=== PATIENT | female | born 1975 | race Caucasian/White ===

== ENCOUNTER 2020-01-31 22:50 | Emergency (ER) | payer MEDICAID ==
[~2020-01-31] VITALS: Ht 157.5 cm; Wt 61.2 kg
[2020-01-31] MEDS ORDERED: FLUORESCEIN SODIUM 1 MG OPHTHALMIC STRIP OP ONE (22:51)
[2020-01-31 22:54] VITALS: BP_SYST 141
--- NOTE | 2020-01-31 22:54 | NUR ---
Patient to ER bed 08 to gown for evaluation. Side rails up. Report given to KEITH Nieves
--- NOTE | 2020-01-31 22:55 | NUR ---
Patient AOx4 ambulated to bedside complaining of right eye pain since this AM. Reports now coming in because pain is unbearable. Pain 9/10. Reports possible Foreign object or her contact. No other complaints/injuries per patient or as noted. Will continue to monitor.
[2020-01-31] MEDS ORDERED: TETRACAINE HCL/PF 0.5% OPHTHALMIC DROPS 4 ML OP ONE (23:00)
--- NOTE | 2020-01-31 23:00 | NUR ---
ER at bedside examining patient.
--- NOTE | 2020-01-31 23:02 | NUR ---
Dr. Beth at bedside to do eye exam.
--- NOTE | 2020-01-31 23:14 | NUR ---
Patient given written and verbal discharge instructions and verbalizes understanding. ER MD discussed with patient the results and treatment provided. Patient in stable condition. ID arm band removed. Patient educated on pain management and to follow up with PMD. Opportunity for questions provided and answered. Medication side effect fact sheet provided.
[2020-01-31 23:15] VITALS: BP_SYST 141
[2020-01-31] MEDS ORDERED: ERYTHROMYCIN BASE 0.5% EYE OINT...G. OP ONE (23:15)
[2020-01-31] MEDS ORDERED: ERYTHROMYCIN BASE 0.5% EYE OINT...G. ONE (23:25)
== END 2020-01-31 23:15 | disposition home or self-care (01) ==
LOC: SED 22:50
DX: S05.01XA Injury of conjunctiva and corneal abrasion without foreign body, right eye, initial encounter (principal); X58.XXXA Exposure to other specified factors, initial encounter; Y93.89 Activity, other specified; Y92.89 Other specified places as the place of occurrence of the external cause; Y99.8 Other external cause status
CPT/HCPCS: 99284

== ENCOUNTER 2020-02-01 19:14 | Emergency (ER) | payer MEDICAID ==
[~2020-02-01] VITALS: Ht 167.6 cm; Wt 61.7 kg
[2020-02-01 19:25] VITALS: BP_SYST 159
[2020-02-01 21:25] VITALS: BP_SYST 159
[2020-02-01] MEDS ORDERED: GENTAMICIN SULFATE 0.3% Non-Formulary OPHT. 5 ML DROPS OP ONE (21:30)
== END 2020-02-01 21:25 | disposition home or self-care (01) ==
LOC: SED 19:14
DX: H57.11 Ocular pain, right eye (principal); Z88.6 Allergy status to analgesic agent
CPT/HCPCS: 99283

== ENCOUNTER 2021-05-11 15:19 | Emergency (ER) | payer MEDICAID, SELFPAY ==
[~2021-05-11] VITALS: Ht 157.5 cm; Wt 63.5 kg
--- NOTE | 2021-05-11 15:19 | NUR ---
Pt placed in the tent
--- NOTE | 2021-05-11 15:20 | NUR ---
Pt brought by self, A&Ox4, pt presents to ER with R flank pain, states she had a kidney stent 7 days, afebrile, skin pink and warm,cap refill<3
[2021-05-11 15:37] VITALS: BP_SYST 120
--- NOTE | 2021-05-11 16:20 | NUR ---
Dr. Beth to tent to assess.
[2021-05-11] MEDS ORDERED: NACL 0.9% 1,000 ML IV ONE (16:30)
[2021-05-11] MEDS ORDERED: MORPHINE 4 MG INJ. 4 MG/ML VIAL IVP ONE (16:30)
[2021-05-11] MEDS ORDERED: KETOROLAC TROMETHAMINE 30 MG VIAL IVP ONE (16:30)
--- NOTE | 2021-05-11 16:45 | NUR ---
# 22 gauge angiocath placed to right hand. Use of asceptic technique. Opsite placed over site. Blood return noted. Flushed with 10 cc of normal saline. No evidence of infiltration noted. Patient tolerated well.
--- NOTE | 2021-05-11 16:55 | NUR ---
Lab at bedside for blood draw.
--- NOTE | 2021-05-11 17:00 | NUR ---
Urine specimen sent to lab for analysis.
--- NOTE | 2021-05-11 17:09 | NUR ---
Pt to CT scan with radiology.
[2021-05-11 17:20] LABS: BASOPHILS # (AUTO) 0.1 K/uL (0.0-0.2); BASOPHILS % (AUTO) 1.2 % (0.0-2.0); EOSINOPHILS # (AUTO) 0.2 K/uL (0.0-0.4); EOSINOPHILS % (AUTO) 2.4 % (0.0-4.0); HEMATOCRIT 39.3 % (36-48); HEMOGLOBIN 13.1 g/dL (12.0-16.0); LYMPHOCYTES # (AUTO) 2.9 K/uL (1.0-5.5); MEAN CORPUSCULAR HEMOGLOBIN 27 pg (27-31); MEAN CORPUSCULAR HGB CONC 33 % (32-36); MEAN CORPUSCULAR VOLUME 81 fL (79.0-98.0); MONOCYTES # (AUTO) 0.5 K/uL (0.0-1.0); MONOCYTES % (AUTO) 6.3 % (1.7-9.3); NEUTROPHILS # (AUTO) 4.8 K/uL (1.8-7.7); NEUTROPHILS % (AUTO) 56.1 % (40.0-70.0); PLATELET COUNT (AUTO) 373 K/uL (130-430); RED BLOOD CELL COUNT(AUTO) 4.87 MIL/uL (4.2-6.2); RED CELL DISTRIBUTION WIDTH 14.9 % (9.0-15.0); WHITE BLOOD COUNT (AUTO) 8.5 K/uL (4.8-10.8)
--- NOTE | 2021-05-11 17:20 | NUR ---
Pt back from CT scan.
[2021-05-11 17:26] LABS: CREATININE 0.74 mg/dL (0.55-1.30); POTASSIUM 3.6 mmol/L (3.5-5.1)
[2021-05-11 17:36] LABS: ALBUMIN 3.6 g/dL (3.4-4.8); TOTAL BILIRUBIN 0.2 mg/dL (0.0-1.0)
[2021-05-11 17:39] LABS: BILIRUBIN,URINE NEGATIVE (NEGATIVE); BLOOD, URINE 3+ (NEGATIVE); COLOR,URINE YELLOW (YELLOW); GLUCOSE,URINE NEGATIVE (NEGATIVE); KETONES,URINE NEGATIVE (NEGATIVE); LEUKOCYTE ESTERASE ,URINE 2+ (NEGATIVE); NITRITE, URINE NEGATIVE (NEGATIVE); PH,URINE 6.5 (5.0-8.0); PROTEIN URINE 1+ (NEGATIVE); UROBILINOGEN,URINE 0.2 (0.2-1.0)
[2021-05-11 17:47] LABS: CLARITY/URINE HAZY (CLEAR)
[2021-05-11 17:48] LABS: BACTERIA,URINE MODERATE /HPF (None Seen); RBC,URINE 20-50 /HPF (0-3); WBC,URINE 80-100 /HPF (0-3)
[2021-05-11 17:49] LABS: MUCUS,URINE None Seen /LPF (None Seen)
--- NOTE | 2021-05-11 18:30 | NUR ---
PT RESTING QUIETLY IN NO DISTRESS AWAITING DISPOSITION.
[2021-05-11] MEDS ORDERED: cefTRIAXone 2 GM VIAL ONE (18:51)
[2021-05-11] MEDS ORDERED: NAPR-690 PO (19:12)
[2021-05-11] MEDS ORDERED: CIPR500T5 PO (19:12)
[2021-05-11 19:19] VITALS: BP_SYST 120
--- NOTE | 2021-05-11 19:20 | NUR ---
Patient given written and verbal discharge instructions and verbalizes understanding. DR. GREGORY LEE MD discussed with patient the results and treatment provided. Patient in stable condition. ID arm band removed. IV catheter removed intact and dressing applied, no active bleeding. Patient educated on pain management and to follow up with PMD. Pain Scale 0/10. Opportunity for questions provided and answered.
== END 2021-05-11 19:20 | disposition home or self-care (01) ==
LOC: SED 15:19
DX: N21.0 Calculus in bladder (principal); N39.0 Urinary tract infection, site not specified; Z88.8 Allergy status to other drugs, medicaments and biological substances
CPT/HCPCS: 36415; 74176; 76376; 80053; 81000; 85025; 87086; 96361; 96365; 96375; 99284; J0696; J1885; J7030; 87186-TC

== ENCOUNTER 2022-10-10 14:43 | Emergency (ER) | payer MEDICAID ==
[~2022-10-10] VITALS: Ht 157.5 cm; Wt 63.5 kg
[~2022-10-10 14:43] MED LIST: CIPR500T5 PO; FLUORESCEIN SODIUM 1 MG OPHTHALMIC STRIP OP ONE; NAPR-690 PO; PROPARACAINE (OPTHANINE 0.5%) 15 ML DROPS OP ONE
[2022-10-10 14:55] VITALS: BP_SYST 126
--- NOTE | 2022-10-10 15:02 | NUR ---
Pt from home C/o right eye redness and pain AOX4 VSS Able to cherise needs known Pending MD evaluation
--- NOTE | 2022-10-10 15:44 | NUR ---
ER at bedside examining patient.
[2022-10-10] MEDS ORDERED: OFLO5DRO6 EACH EYE (15:55)
[2022-10-10] MEDS ORDERED: DIPHTH,PERTUSS(ACELL),TET VAC 0.5 ML VIAL (Tdap) I.M. ONE (16:15)
[2022-10-10 18:41] VITALS: BP_SYST 126
--- NOTE | 2022-10-10 18:41 | NUR ---
Patient given written and verbal discharge instructions and verbalizes understanding. ER MD discussed with patient the results and treatment provided. Patient in stable condition. ID arm band removed. Patient educated on pain management and to follow up with PMD Opportunity for questions provided and answered. Medication side effect fact sheet provided.
== END 2022-10-10 18:41 | disposition home or self-care (01) ==
LOC: SED 14:43
DX: T15.01XA Foreign body in cornea, right eye, initial encounter (principal); H16.001 Unspecified corneal ulcer, right eye; M25.572 Pain in left ankle and joints of left foot; Z88.8 Allergy status to other drugs, medicaments and biological substances; Z79.899 Other long term (current) drug therapy; W45.8XXA Other foreign body or object entering through skin, initial encounter; Y93.89 Activity, other specified; Y92.89 Other specified places as the place of occurrence of the external cause; Y99.8 Other external cause status
CPT/HCPCS: 90715; 99284